=== PATIENT | male | born 1945 ===

== ENCOUNTER 2020-05-30 11:58 | Emergency (ER) | payer OTHER ==
[~2020-05-30] VITALS: Ht 180.3 cm; Wt 73.5 kg
[2020-05-30] MEDS ORDERED: AMOX-CLAV 875-1 EACH PO (14:50)
[2020-05-30] MEDS ORDERED: INTESTINEX680 M1 PO (14:50)
== END 2020-05-30 15:17 | disposition home or self-care (01) ==
LOC: ER 11:58
DX: S60.511A Abrasion of right hand, initial encounter (principal); L03.113 Cellulitis of right upper limb; W55.03XA Scratched by cat, initial encounter; Y93.89 Activity, other specified; Y92.89 Other specified places as the place of occurrence of the external cause; Y99.8 Other external cause status